=== PATIENT | male | born 1965 | race Caucasian/White ===

== ENCOUNTER → 2020-03-27 | Outpatient (CLI) | payer OTHER ==
[2020-03-27 16:39] LABS: HEMOGLOBIN 13.9 gm/dl (14.0-17.5); RED BLOOD COUNT 4.88 M/UL (4.20-5.50); WHITE BLOOD COUNT 8.1 K/UL (4.5-11.0)
[2020-03-27 16:58] LABS: BUN/CREATININE RATIO 21 (0-10)
== END ==
LOC: LAB 16:00
PROVIDERS: Registered Nurse
DX: M79.605 Pain in left leg (principal)
CPT/HCPCS: 36415; 80053; 85025; 85610; 85730; 93005

== ENCOUNTER → 2020-03-27 | Outpatient (CLI) | payer OTHER | LOC: EXRD 14:30 | DX: I74.9 Embolism and thrombosis of unspecified artery (principal); I82.412 Acute embolism and thrombosis of left femoral vein; I82.432 Acute embolism and thrombosis of left popliteal vein | CPT/HCPCS: 36415; 80053; 85025; 85610; 85730; 93005; 93925; 93971 ==